=== PATIENT | male | born 1950 | race Caucasian/White ===

== ENCOUNTER 2019-08-06 15:06 | Outpatient (CLI) | payer OTHER, MEDICARE, SELFPAY ==
[2019-08-08 17:06] LABS: SARS-CoV-2 RNA PCR Negative
== END 2019-08-06 15:07 | disposition home or self-care (01) ==
LOC: ANHCOVIDDT 08-08 06:49
PROVIDERS: PCP Nurse Practitioner Family; Visit Provider Specialist
DX: Z01.818 Encounter for other preprocedural examination (principal); Z11.59 Encounter for screening for other viral diseases
CPT/HCPCS: 87635; C9803; U0003